=== PATIENT | female | born 1990 | race Caucasian/White ===

== ENCOUNTER → 2022-12-26 | Day surgery (SDC) | payer SELFPAY ==
--- NOTE | 2022-12-26 13:04 | RAD REPORT ---
EXAM DESCRIPTION: Ultrasound-guided vacuum assisted right breast core biopsy CLINICAL HISTORY: N63.13, I90.83, SEE DX COMPARISON: DIAGNOSTIC MAMMO W CAD dated 09/11/2022. Subsequent outside institution right breast ultr asound was also reviewed FINDINGS: Informed consent was obtained and time-out was performed. The patient's right breast was prepped and draped in the usual sterile fashion along the right lower outer quadrant in the area of concern. 1% lidocaine was used for local anesthetic purposes. Utilizing aseptic technique and ultrasound guidance, a 12 gauge vacuum assisted core biopsy device wa s used to obtain 3 core specimens through the mass of interest. A post biopsy clip was then placed. All collected material was sent for cytology. Patient tolerated procedure well. IMPRESSION: Successful ultrasound guided vacuum assisted right breast mass biopsy.
== END ==
LOC: DS 10:03
PROVIDERS: ATTEND Nurse Practitioner Family
DX: D24.1 Benign neoplasm of right breast (principal)
CPT/HCPCS: 19083; 88305